=== PATIENT | male | born 1975 | race Caucasian/White ===

== ENCOUNTER 2018-10-29 11:42 | Emergency (ER) | payer BC, OTHER ==
--- OUTSIDE RECORDS SUMMARY | 2018-10-29 11:53 | XMS REPORT | Continuity of Care Document ---
:1975 External Reference #:[id number] Author Name Keena Drake PA-C Address [address] [place] [address] Care Team Providers Name Role Phone Ky Page M.D. Care Team Information Behavioral Health Specialist Unavailable Ky Page M.D. Primary Care Physician Unavailable Payers Date Identification Numbers Payment Provider Subscriber Policy Number: [id number] [facility] Demar Cano PayID: [id number] [address] [address] [place] [address] Advance Directives Description No Information Available Problems Active Problems Provider Date Chronic rhinitis Satish Vargas MD Onset: 10/04/2017 Chronic maxillary sinusitis Satish Vargas MD Onset: 10/04/2017 Family History Description No Information Available Social History Type Date Description Comments Sex Unknown Occupation Teacher [employer] Tobacco Use Start: Unknown Never Smoked Cigarettes Tobacco Use Start: Unknown has never smoked cigars Tobacco Use Start: Unknown has never smoked a pipe Smokeless Tobacco has never used smokeless tobacco ETOH Use Denies alcohol use Recreational Drug Use denies drug use Tobacco Use Start: Unknown Patient has never smoked Smoking Status Reviewed: 09/26/18 Patient has never smoked Allergies, Adverse Reactions, Alerts Active Allergies Reaction Severity Comments Date NKDA 11/04/2007 Shrimp Mild itching at point of ingestion, 07/30/2017 lips primarily. Medications Active Medications SIG Qnty Indications Ordering Provider Date Optivar 1 Drop O.U. bid 1units Unknown 0.05% Solution prn Itching Lexapro Daily Ky Page 10mg Tablets M.D. Valtrex As needed. Ky Page 1gm Tablets M.D. Azelastine HCL As needed for Ky Page (Nasal) sinusitis. M.D. 137mcg/[place] Solution Q Nasal qd Unknown Claritin 1 by mouth Unknown Chewtabs everyday History Medications Ipratropium [place] 1 puff both sides 1units J31.0 Satish Vargas 2017 - 0.06% every 6 hours as 07/02/2018 Solution needed Topamax 25 MG po for 10 1Month Jian Fernandez 12/17/2007 - 25mg Tablets days, 50 MG for Sammy Castro 07/30/2017 10 days, 75 MG for 10 days, then 100 MG qday at night Imitrex 1 [place] 3units Jian Fernandez 12/16/2007 - 20mg/Act Solution Intranasal as Sammy Castro 07/30/2017 Needed For Headache prn May Repeat In 2 Hours. Prednisone 40 mg for 5 days, 1Course 473.8 Jian Fernandez 03/20/2007 - 10mg Tablets then 20 mg for 3 Sammy Castro 05/07/2007 days, then 10 mg for 3 days, then 5 mg for 3 days with food Lortab 5 1-2 po q4h prn 30tabs 473.8 Jian Fernandez 03/20/2007 - Tablets pain Sammy Castro 05/07/2007 Levaquin 1 po qd 14tabs Jian Fernandez 07/20/2006 - 500mg Tablets Sammy Castro 08/28/2006 Zyrtec Unknown 07/16/2006 - 07/30/2017 Singulair Unknown 07/16/2006 - 07/30/2017 Fexofenadine 1 po qd 90Days Jian Fernandez 10/31/2005 - 180mg Sammy Castro 03/15/2007 Tablets Levaquin 1 po qd 14tabs 473.9 Jian Fernandez 10/11/2005 - 500mg Tablets Sammy Castro 05/07/2007 Nasonex Intranasal 2 Sprays Each 1units Unknown 10/10/2005 - [place] Nostril qd 11/26/2007 50mcg Suspension Pseudoephedrine HCL Unknown 10/10/2005 - 05/07/2007 Levaquin Unknown - 05/07/2007 Veramyst 1units Unknown - Suspension 07/30/2017 Immunizations Description No Information Available Vital Signs Date Vital Result Comment 07/02/2018 2:17pm Weight 216.00 lb Weight 97.978 kg Height 72 inches 6'0" Height in cm's 182.9 cm BMI (Body Mass Index) 29.3 kg/m2 10/04/2017 3:12pm Weight 210.00 lb Weight 95.256 kg Height 72 inches 6'0" Height in cm's 182.9 cm BMI (Body Mass Index) 28.5 kg/m2 12/17/2007 8:41am BP Systolic 130 mmHg BP Diastolic 78 mmHg Heart Rate 64 /min Respiratory Rate 16 /min 11/26/2007 9:57am BP Systolic 139 mmHg BP Diastolic 76 mmHg Heart Rate 67 /min Respiratory Rate 16 /min 10/11/2007 10:50am BP Systolic 134 mmHg BP Diastolic 81 mmHg Heart Rate 73 /min Respiratory Rate 16 /min 07/19/2007 3:03pm BP Systolic 140 mmHg BP Diastolic 77 mmHg Heart Rate 69 /min Respiratory Rate 15 /min 06/20/2007 3:06pm BP Systolic 149 mmHg BP Diastolic 71 mmHg Heart Rate 68 /min Respiratory Rate 18 /min 03/20/2007 2:23pm BP Systolic 127 mmHg BP Diastolic 94 mmHg Heart Rate 109 /min Respiratory Rate 17 /min 07/17/2006 8:34am BP Systolic 122 mmHg BP Diastolic 78 mmHg Heart Rate 85 /min Respiratory Rate 16 /min 10/11/2005 2:21pm BP Systolic 121 mmHg BP Diastolic 73 mmHg Heart Rate 70 /min Respiratory Rate 16 /min Results Test Date Facility Test Result H/L Range Note Xray 11/07/[address] [facility] [address] Sinus mucus retention cy [address] [place] [address] [phone] Procedures Date Code Description Status 07/02/2018 76551 Nasal Endoscopy, Diagnostic Completed 10/11/2007 82945 Nasal Endoscopy, Diagnostic Completed 06/20/2007 45190 Nasal Endoscopy, Diagnostic Completed 05/07/2007 84649 Endoscopy Nasal/Sinus Max Sinusco Completed 04/04/2007 65654 Nasal Endoscopy W/ Debridement Completed 03/29/2007 48079 Nasal Endoscopy W/Maxllary Antrostomy W/Excision Of Poylp Completed 03/29/2007 58612 Nasal Endoscopy/Ethmoidectomy, Total Completed 03/29/2007 79109 Septoplasty Completed 07/17/2006 75771 Cautery Of Turbinates/Intramural Completed 10/24/2005 69375 Prick Test Completed Encounters Type Date Location Provider Dx Diagnosis Office Visit 07/02/2018 [place] eKena Drake, J30.1 Allergic rhinitis 2:15p 06/04/07 PA-C due to pollen J30.5 Allergic rhinitis due to food J30.81 Allergic rhinitis due to animal (cat) (dog) hair and dander G50.1 Atypical facial pain R53.83 Other fatigue Office Visit 10/04/2017 3:15p [facility] Satish Vargas J32.0 Chronic 06/04/07 maxillary sinusitis J31.0 Chronic rhinitis Office Visit 12/17/2007 8:30a [facility] Jian Fernandez 784.0 Headache Or 06/04/07 Sammy Castro Facial Pain 346.21 Migraine Variants W/ Intractable 473.0 Sinusitis, Chronic Maxillary Office Visit 11/26/2007 10:00a [facility] Jian Fernandez 784.0 Headache Or 06/04/07 Sammy Castro Facial Pain 346.21 Migraine Variants W/ Intractable Office Visit 11/04/2007 [facility] Jian Fernandez 473.2 Sinusitis, 10:15a 06/04/07 Sammy Castro Chronic Ethmoidal Office Visit 10/11/2007 [facility] Satish Vargas 473.2 Sinusitis, 10:45a 06/04/07 Chronic Ethmoidal 473.0 Sinusitis, Chronic Maxillary 473.8 Sinusitis, Chronic [place]- Office Visit 07/19/2007 3:30p [facility] 06/04/07 Satish Vargas 784.0 Headache Or MD Facial Pain 780.79-1 Fatigue Or Tiredness Office Visit 06/20/2007 [facility] Satish Vargas 473.0 Sinusitis, 2:50p 06/04/07 Chronic Maxillary 780.79-1 Fatigue Or Tiredness 784.0 Headache Or Facial Pain Office Visit 03/20/2007 [facility] Jian Fernandez 473.8 Sinusitis, 2:15p 06/04/07 Strominger, M.D. 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
[2018-10-29 12:26] VITALS: BP 124/69
[2018-10-29] MEDS ORDERED: Tetan/Diph/Pertus SYR(Tdap)* 0.5 ML SYR(BOOSTRIX) use SYR IM ONE (14:05)
--- NOTE | 2018-10-29 14:06 | UC ---
Laceration HPI - HPI Summary HPI Summary: 43 y/o male presents to the urgent care c/o laceration of the tip of his left pinky finger w/ a slicer s/p cutting potatoes at work today about 1 hr ago. Pt is not UTD w/ his Tetanus vaccine. He irrigated his finger and bleeding stopped w/ pressure. Pain at touch is 1/10. Pt denies numbness or tingling sensation over his finger nd he can move finger w/o any problem. Pt has been healthy. 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 Pt denies fever, SOB, chest pain, abdominal pain, N/V/D. - History Of Current Complaint Chief Complaint: UCLaceration Stated Complaint: FINGER LAC Time Seen by Provider: 10/29/18 13:42 Hx Obtained From: Patient Laceration Location: Finger - left little finger Mechanism Of Injury: Sharp Trauma Onset/Duration: Sudden Onset, Lasting Hours - 1 hr Severity: Mild Pain Intensity: 1 Pain Scale Used: 0-10 Numeric Aggravating Factors: Other: - touch Related History: Dominant Hand Right - Allergies/Home Medications Allergies/Adverse Reactions: Allergies Allergy/AdvReac Type Severity Reaction Status Date / Time shellfish derived Allergy Tingling Verified 10/29/18 12:27 eggplant Allergy Tingling Uncoded 10/29/18 12:27 Home Medications: Home Medications Escitalopram Oxalate [Lexapro 10 mg] 17.5 mg PO DAILY 10/29/18 [History Confirmed 10/29/18] Ibuprofen 400 mg PO DAILY 10/29/18 [History Confirmed 10/29/18] PMH/Surg Hx/FS Hx/Imm Hx Previously Healthy: Yes - Pt denies PMHX - Surgical History Surgical History: Yes Surgery Procedure, Year, and Place: endoscopic sinus surgery bilaterally with cauterization - Family History Known Family History: Positive: None - Pt denies FMHX - Social History Occupation: Employed Full-time Alcohol Use: None Substance Use Type: None Smoking Status (MU): Never Smoked Tobacco - Immunization History Hx Tetanus, Diphtheria Vaccination: No Review of Systems All Other Systems Reviewed And Are Negative: Yes Constitutional: Positive: Negative Skin: Positive: Other - laceration of left pinky finger s/p cutting potatoes Eyes: Positive: Negative ENT: Positive: Negative Respiratory: Positive: Negative Cardiovascular: Positive: Negative Gastrointestinal: Positive: Negative Genitourinary: Positive: Negative Motor: Positive: Negative Neurovascular: Positive: Negative Musculoskeletal: Positive: Other: - left pinky pain s/p laceration Neurological: Positive: Negative Psychological: Positive: Negative Is Patient Immunocompromised?: No Physical Exam - Summary Physical Exam Summary: Vital Signs Reviewed: Yes General: well developed, well nourished male sitting in the examining table w/o any apparent distress Eye Exam: Normal Eyes: Positive: Conjunctiva Clear - PERRLA, EOMI, fundi grossly normal ENT: Positive: Normal ENT inspection, Hearing grossly normal, Pharynx normal, TMs normal Neck: Positive: Supple, Nontender, No Lymphadenopathy Respiratory: Positive: Chest non-tender, Lungs clear, Normal breath sounds, No respiratory distress Cardiovascular: Positive: RRR, No Murmur, Pulses Normal, Brisk Capillary Refill Abdomen Description: Positive: Nontender, No Organomegaly, Soft. Negative: CVA Tenderness (R), CVA Tenderness (L) Bowel Sounds: Positive: Present Musculoskeletal: Positive: Strength Intact, ROM Intact, No Edema Neurological: Positive: Alert, Muscle Tone Normal Psychological Exam: Normal Skin: Positive: volar side of left 5th distal phalanx with a linear superficial laceration about 1.0cm in size, non bleeding, no foreign body observed. mild tenderness to palpation, no ecchymosis around pinky finger. FROM of all fingers, sensation intact, capillary refill brisk, and pulses WNL. Triage Information Reviewed: Yes Vital Signs: Initial Vital Signs Temp 98.2 F 10/29/18 12:23 Pulse 54 10/29/18 12:23 Resp 18 10/29/18 12:23 BP 124/69 10/29/18 12:23 Pulse Ox 99 10/29/18 12:23 Laceration Repair - Laceration Repair 1 Description: Linear - superficial linear laceration on volar side of the distal left 5th phalanx Laceration Size After Repair: Length (cm) - 1.0cm Modified For Repair: No Cleansing Completed Via Routine Prep: Yes Irrigation With Pressure Irrigation Device: Yes Closure Material: Skin Adhesive, SteriStrips - 3 Closure Method: Single Layer Suture Of: Skin Laceration Course/Dx - Course/Dx Course Of Treatment: 43 y/o male presents to the urgent care c/o laceration of the tip of his left pinky finger w/ a slicer s/p cutting potatoes at work today about 1 hr ago. Pt is not UTD w/ his Tetanus vaccine. He irrigated his finger and bleeding stopped w/ pressure. Pain at touch is 1/10. Pt denies numbness or tingling sensation over his finger nd he can move finger w/o any problem. Pt has been healthy. 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 Pt denies fever, SOB, chest pain, abdominal pain, N/V/D. Hx obtained. Pt w/ volar side of left 5th distal phalanx with a linear superficial laceration about 1.0cm in size, non bleeding, no foreign body observed. mild tenderness to palpation, no ecchymosis around pinky finger. FROM of all fingers, sensation intact, capillary refill brisk, and pulses WNL. LACERATION PROCEDURE NOTE: Copious irrigation was done with saline and the wound explored. There was no FB or deep structure injury noted. wound cleaned w/ Iodine swabs. Laceration closed w/ skin adhesive and 3 steri-strips. Wound dressed w/ sterile gauze.The Pt tolerated the procedure well without adverse effects. Neurovascular intact and FROM of finger. Tdap ordered and applied by nurse. Pt advised if any signs of infection develop to immediately return to the urgent care of PCP for further management and treatment. Pt understood and agreed and left the clinic ambulating A&Ox3. - Differential Dx - Laceration/Wound Differental Diagnoses: Avulsion, Cellulitis, Laceration, Puncture Wound - Diagnosis Provider Diagnosis: Laceration of left little finger Discharge - Sign-Out/Discharge Documenting (check all that apply): Patient Departure - d/c All imaging exams completed and their final reports reviewed: No Studies - Discharge Plan Condition: Stable Disposition: HOME Patient Education Materials: Laceration (ED), Skin Adhesive Care (ED) Referrals: Ky Page MD [Primary Care Provider] - 1 Week Additional Instructions: 1-Please apply bacitracin topical antibiotic over the wound after steri-strips fall off . Keep wound clean and dry 2-Take Ibuprofen or Tylenol PO q6-8hrs prn for pain or swelling. 3- If you develop fever or redness around your finger please return to the Urgent care or your PCP for further management. - Billing Disposition and Condition Condition: STABLE Disposition: Home
== END 2018-10-29 14:39 | disposition home or self-care (01) ==
LOC: UCEAST 11:42
DX: S61.217A Laceration without foreign body of left little finger without damage to nail, initial encounter (principal); W26.9XXA Contact with unspecified sharp object(s), initial encounter; Y92.219 Unspecified school as the place of occurrence of the external cause; Y99.0 Civilian activity done for income or pay; Z23 Encounter for immunization; Z91.013 Allergy to seafood; Z91.018 Allergy to other foods
CPT/HCPCS: 12001; 90715; 99211; G0463

== ENCOUNTER 2021-10-19 07:23 | Inpatient (IN) ==
[2021-10-21 06:41] LABS: ABS Eosinophils 0.1 10^3/ul (0-0.6); ABS Lymphocytes 1.1 10^3/ul (1.0-4.8); ABS Monocytes 0.5 10^3/ul (0-0.8); ABS Neutrophils 5.3 10^3/ul (1.5-7.7); Eosinophil % 2.1 %; Hematocrit 47 % (42-52); Hemoglobin 15.8 g/dL (14.0-18.0); Lymphocyte % 15.2 %; Mean Corpuscular HGB Conc 34 g/dL (31-36); Mean Corpuscular Hemoglobin 29 pg (27-31); Mean Corpuscular Volume 85 fL (80-94); Mean Platelet Volume 7.5 fL (7.4-10.4); Nucleated Red Blood Cells % 0.1; Platelet Count 273 10^3/uL (150-450); Red Cell Distribution Width 13 % (10-15)
[2021-10-21 07:24] LABS: Albumin 4.3 g/dL (3.2-5.2); Albumin/Globulin Ratio 1.8 (1-3); Calcium 10.1 mg/dL (8.6-10.3); Globulin 2.4 g/dL (2-4); Potassium 4.7 mmol/L (3.5-5.0); Total Bilirubin 0.7 mg/dL (0.2-1.0); Total Protein 6.7 g/dL (6.4-8.9); eGFR CKD-EPI 91.7 (>60)
[2021-10-21] MEDS ORDERED: Ondansetron ODT 4 mg TAB 4 MG TAB SL PRN (08:15)
[2021-10-21] MEDS ORDERED: Al Hydrox/Mg Hydrox/Simet LIQ 30 ML UDC PO PRN (08:15)
[2021-10-21] MEDS: Aspirin EC 325 mg TAB.EC PO SCH (11:04)
[2021-10-21] MEDS: Enoxaparin 40 MG/0.4 ML SYR SUBCUT SCH (11:05)
[2021-10-21] MEDS: Fluticasone NASAL SPRAY 50MCG 16 gm SPRAY BTL BOTH NARES SCH (11:07)
[2021-10-21] MEDS: Scopolamine 1 mg/72hr PATCH TRANSDERM SCH (15:53)
[2021-10-21] MEDS: Ondansetron ODT 4 mg TAB 4 MG TAB SL PRN (17:13)
[2021-10-21] MEDS: Ondansetron ODT 4 mg TAB 4 MG TAB SL SCH (21:13)
[2021-10-22] MEDS: Aspirin EC 325 mg TAB.EC PO SCH (09:24)
[2021-10-22] MEDS: Ondansetron ODT 4 mg TAB 4 MG TAB SL SCH ×2 (09:25→20:10)
[2021-10-22] MEDS: Fluticasone NASAL SPRAY 50MCG 16 gm SPRAY BTL BOTH NARES SCH (09:29)
[2021-10-22] MEDS: Enoxaparin 40 MG/0.4 ML SYR SUBCUT SCH (09:29)
[2021-10-22] MEDS: Senna TAB 8.6 mg TAB PO PRN (20:12)
[2021-10-23] MEDS: Aspirin EC 325 mg TAB.EC PO SCH (08:43)
[2021-10-23] MEDS: Enoxaparin 40 MG/0.4 ML SYR SUBCUT SCH (08:44)
[2021-10-23] MEDS: Fluticasone NASAL SPRAY 50MCG 16 gm SPRAY BTL BOTH NARES SCH (08:45)
[2021-10-23] MEDS: Ondansetron ODT 4 mg TAB 4 MG TAB SL SCH ×2 (08:54→20:26)
[2021-10-24] MEDS: Aspirin EC 325 mg TAB.EC PO SCH (08:45)
[2021-10-24] MEDS: Fluticasone NASAL SPRAY 50MCG 16 gm SPRAY BTL BOTH NARES SCH (08:46)
[2021-10-24] MEDS: Scopolamine 1 mg/72hr PATCH TRANSDERM SCH ×2 (08:50→13:52)
[2021-10-24] MEDS: Enoxaparin 40 MG/0.4 ML SYR SUBCUT SCH (08:52)
[2021-10-24] MEDS: Ondansetron ODT 4 mg TAB 4 MG TAB SL SCH ×2 (08:53→20:02)
[2021-10-25] MEDS: Ondansetron ODT 4 mg TAB 4 MG TAB SL SCH ×2 (09:32→21:12)
[2021-10-25] MEDS: Aspirin EC 325 mg TAB.EC PO SCH (09:33)
[2021-10-25] MEDS: Enoxaparin 40 MG/0.4 ML SYR SUBCUT SCH (09:34)
[2021-10-25] MEDS: Fluticasone NASAL SPRAY 50MCG 16 gm SPRAY BTL BOTH NARES SCH (09:36)
[2021-10-25] MEDS: Magnesium Hydroxide LIQ 30 ML UDC PO PRN (09:41)
[2021-10-25] MEDS: Senna TAB 8.6 mg TAB PO PRN (20:44)
[2021-10-26] MEDS: Aspirin EC 325 mg TAB.EC PO SCH (07:39)
[2021-10-26] MEDS: Fluticasone NASAL SPRAY 50MCG 16 gm SPRAY BTL BOTH NARES SCH (07:39)
[2021-10-26] MEDS: Enoxaparin 40 MG/0.4 ML SYR SUBCUT SCH (07:40)
[2021-10-26] MEDS: Ondansetron ODT 4 mg TAB 4 MG TAB SL SCH ×2 (07:41→20:35)
[2021-10-26] MEDS: Ondansetron ODT 4 mg TAB 4 MG TAB SL PRN (13:09)
[2021-10-26] MEDS: Scopolamine 1 mg/72hr PATCH TRANSDERM SCH (21:05)
[2021-10-26] MEDS: Senna TAB 8.6 mg TAB PO SCH (23:04)
[2021-10-27] MEDS: Polyethylene Glycol 3350 17 GM PACKET PO SCH (08:57)
[2021-10-27] MEDS: Fluticasone NASAL SPRAY 50MCG 16 gm SPRAY BTL BOTH NARES SCH (08:58)
[2021-10-27] MEDS: Aspirin EC 325 mg TAB.EC PO SCH (08:58)
[2021-10-27] MEDS: Enoxaparin 40 MG/0.4 ML SYR SUBCUT SCH (08:58)
[2021-10-27] MEDS: Magnesium Hydroxide LIQ 30 ML UDC PO PRN (15:19)
[2021-10-27] MEDS: Ondansetron ODT 4 mg TAB 4 MG TAB SL PRN (16:30)
[2021-10-27] MEDS: Senna TAB 8.6 mg TAB PO SCH (19:54)
[2021-10-28 06:49] LABS: ABS Basophils 0.1 10^3/ul (0-0.2); ABS Eosinophils 0.3 10^3/ul (0-0.6); ABS Lymphocytes 1.6 10^3/ul (1.0-4.8); ABS Monocytes 0.5 10^3/ul (0-0.8); ABS Neutrophils 3.5 10^3/ul (1.5-7.7); Hematocrit 42 % (42-52); Hemoglobin 14.3 g/dL (14.0-18.0); Lymphocyte % 26.7 %; Mean Corpuscular HGB Conc 34 g/dL (31-36); Mean Corpuscular Hemoglobin 29 pg (27-31); Mean Corpuscular Volume 85 fL (80-94); Mean Platelet Volume 7.6 fL (7.4-10.4); Platelet Count 243 10^3/uL (150-450); Red Cell Distribution Width 13 % (10-15); White Blood Count 5.9 10^3/uL (3.5-10.8)
[2021-10-28 07:23] LABS: Albumin 3.9 g/dL (3.2-5.2); Calcium 9.4 mg/dL (8.6-10.3); Potassium 4.3 mmol/L (3.5-5.0); Total Bilirubin 0.5 mg/dL (0.2-1.0); Total Protein 5.9 g/dL (6.4-8.9); eGFR CKD-EPI 80.2 (>60)
[2021-10-28] MEDS: Fluticasone NASAL SPRAY 50MCG 16 gm SPRAY BTL BOTH NARES SCH (10:35)
[2021-10-28] MEDS: Enoxaparin 40 MG/0.4 ML SYR SUBCUT SCH (10:35)
[2021-10-28] MEDS: Aspirin EC 325 mg TAB.EC PO SCH (10:36)
[2021-10-28] MEDS: Polyethylene Glycol 3350 17 GM PACKET PO SCH (10:37)
[2021-10-28] MEDS: Ondansetron ODT 4 mg TAB 4 MG TAB SL PRN (15:48)
[2021-10-28] MEDS: Senna TAB 8.6 mg TAB PO SCH (21:08)
[2021-10-29] MEDS: Ondansetron ODT 4 mg TAB 4 MG TAB SL PRN ×2 (08:48→15:53)
[2021-10-29] MEDS: Fluticasone NASAL SPRAY 50MCG 16 gm SPRAY BTL BOTH NARES SCH (09:33)
[2021-10-29] MEDS: Aspirin EC 325 mg TAB.EC PO SCH (09:34)
[2021-10-29] MEDS: Enoxaparin 40 MG/0.4 ML SYR SUBCUT SCH (09:34)
[2021-10-29] MEDS: Polyethylene Glycol 3350 17 GM PACKET PO SCH (09:36)
[2021-10-29] MEDS: Senna TAB 8.6 mg TAB PO SCH (20:40)
[2021-10-29] MEDS: Scopolamine 1 mg/72hr PATCH TRANSDERM SCH (20:45)
[2021-10-30] MEDS: Ondansetron ODT 4 mg TAB 4 MG TAB SL PRN ×3 (08:21→20:37)
[2021-10-30] MEDS: Aspirin EC 325 mg TAB.EC PO SCH (09:12)
[2021-10-30] MEDS: Polyethylene Glycol 3350 17 GM PACKET PO SCH (09:13)
[2021-10-30] MEDS: Enoxaparin 40 MG/0.4 ML SYR SUBCUT SCH (09:14)
[2021-10-30] MEDS: Fluticasone NASAL SPRAY 50MCG 16 gm SPRAY BTL BOTH NARES SCH (09:15)
[2021-10-30] MEDS: Senna TAB 8.6 mg TAB PO SCH (20:36)
[2021-10-31] MEDS: Enoxaparin 40 MG/0.4 ML SYR SUBCUT SCH (09:03)
[2021-10-31] MEDS: Aspirin EC 325 mg TAB.EC PO SCH (09:03)
[2021-10-31] MEDS: Fluticasone NASAL SPRAY 50MCG 16 gm SPRAY BTL BOTH NARES SCH (09:04)
[2021-10-31] MEDS: Ondansetron ODT 4 mg TAB 4 MG TAB SL PRN ×2 (09:05→16:51)
[2021-10-31] MEDS: Polyethylene Glycol 3350 17 GM PACKET PO SCH (09:30)
[2021-10-31] MEDS: Senna TAB 8.6 mg TAB PO SCH (21:05)
[2021-11-01] MEDS: Ondansetron ODT 4 mg TAB 4 MG TAB SL PRN ×3 (08:00→19:42)
[2021-11-01] MEDS: Enoxaparin 40 MG/0.4 ML SYR SUBCUT SCH (10:01)
[2021-11-01] MEDS: Aspirin EC 325 mg TAB.EC PO SCH (10:01)
[2021-11-01] MEDS: Fluticasone NASAL SPRAY 50MCG 16 gm SPRAY BTL BOTH NARES SCH (10:01)
[2021-11-01] MEDS: Polyethylene Glycol 3350 17 GM PACKET PO SCH (10:02)
[2021-11-01] MEDS: Senna TAB 8.6 mg TAB PO SCH (20:03)
[2021-11-02] MEDS: Ondansetron ODT 4 mg TAB 4 MG TAB SL PRN ×3 (07:33→19:14)
[2021-11-02] MEDS: Fluticasone NASAL SPRAY 50MCG 16 gm SPRAY BTL BOTH NARES SCH (10:30)
[2021-11-02] MEDS: Aspirin EC 325 mg TAB.EC PO SCH (10:30)
[2021-11-02] MEDS: Enoxaparin 40 MG/0.4 ML SYR SUBCUT SCH (10:30)
[2021-11-02] MEDS: Polyethylene Glycol 3350 17 GM PACKET PO SCH (10:34)
[2021-11-02] MEDS: Senna TAB 8.6 mg TAB PO SCH (20:10)
[2021-11-03] MEDS: Ondansetron ODT 4 mg TAB 4 MG TAB SL PRN ×3 (08:02→20:11)
[2021-11-03] MEDS: Enoxaparin 40 MG/0.4 ML SYR SUBCUT SCH (08:03)
[2021-11-03] MEDS: Polyethylene Glycol 3350 17 GM PACKET PO SCH (09:45)
[2021-11-03] MEDS: Aspirin EC 325 mg TAB.EC PO SCH (09:45)
[2021-11-03] MEDS: Fluticasone NASAL SPRAY 50MCG 16 gm SPRAY BTL BOTH NARES SCH (09:45)
[2021-11-03] MEDS: Senna TAB 8.6 mg TAB PO SCH (20:11)
[2021-11-04 06:07] VITALS: BP 101/65
[2021-11-04 06:50] LABS: ABS Eosinophils 0.2 10^3/ul (0-0.6); ABS Lymphocytes 1.6 10^3/ul (1.0-4.8); ABS Monocytes 0.5 10^3/ul (0-0.8); ABS Neutrophils 3.3 10^3/ul (1.5-7.7); Eosinophil % 4.2 %; Hematocrit 42 % (42-52); Hemoglobin 14.4 g/dL (14.0-18.0); Lymphocyte % 28.9 %; Mean Corpuscular HGB Conc 34 g/dL (31-36); Mean Corpuscular Hemoglobin 29 pg (27-31); Mean Corpuscular Volume 85 fL (80-94); Mean Platelet Volume 7.5 fL (7.4-10.4); Nucleated Red Blood Cells % 0.1; Platelet Count 211 10^3/uL (150-450); Red Blood Count 4.97 10^6 /uL (4.18-5.48); Red Cell Distribution Width 13 % (10-15); White Blood Count 5.7 10^3/uL (3.5-10.8)
[2021-11-04 07:14] LABS: Albumin/Globulin Ratio 2.2 (1-3); Calcium 9.8 mg/dL (8.6-10.3); Globulin 1.8 g/dL (2-4); Potassium 4.7 mmol/L (3.5-5.0); Total Bilirubin 0.6 mg/dL (0.2-1.0); Total Protein 5.8 g/dL (6.4-8.9); eGFR CKD-EPI 78.5 (>60)
[2021-11-04] MEDS: Ondansetron ODT 4 mg TAB 4 MG TAB SL PRN (08:41)
[2021-11-04] MEDS: Enoxaparin 40 MG/0.4 ML SYR SUBCUT SCH (10:09)
[2021-11-04] MEDS: Aspirin EC 325 mg TAB.EC PO SCH (10:10)
[2021-11-04] MEDS: Fluticasone NASAL SPRAY 50MCG 16 gm SPRAY BTL BOTH NARES SCH (10:10)
[2021-11-04] MEDS: Polyethylene Glycol 3350 17 GM PACKET PO SCH (10:12)
== END 2021-11-04 13:41 | disposition home or self-care (01) | DRG 58 ==
LOC: PMRU 10-20 10:54
PROVIDERS: ADMIT Physical Medicine & Rehabilitation; ATTEND Physical Medicine & Rehabilitation